=== PATIENT | male | born 1985 | race Two or more races ===

== ENCOUNTER 2018-04-07 10:41 | Emergency (ER) | payer SELFPAY ==
[~2018-04-07] VITALS: Ht 157.5 cm; Wt 63.6 kg
[2018-04-07 11:19] VITALS: Ht 157.5 cm; Wt 63.6 kg
[2018-04-07 11:50] LABS: BASOPHILS 0.4 % (0-2); EOSINOPHILS 0.9 % (0-7); HEMATOCRIT 46.9 % (42.0-54.0); HEMOGLOBIN 16.6 g/dL (13.5-17.5); IMMATURE GRANULOCYTES 0.5 % (0-5); LYMPHOCYTES 18.4 % (15-50); MCH 31.4 pg (26.0-34.0); MCHC 35.4 g/dL (31.0-37.0); MCV 88.7 fL (80.0-100.0); MEAN PLATELET VOLUME 9.5 fL (7.4-10.4); MONOCYTES 4.3 % (2-11); NEUTROPHILS 75.5 % (40-80); PLATELET COUNT 292 10x3/uL (130-400); RBC 5.29 10x6/uL (4.20-6.10); RDW 13.1 % (11.5-14.5); WBC 14.8 10x3/uL (4.8-10.8)
[2018-04-07 12:08] LABS: ALBUMIN 4.3 g/dL (3.4-5.0); ALKALINE PHOSPHATASE 105 U/L (46-116); ALT (SGPT) 45 U/L (10-68); BILIRUBIN - TOTAL 0.55 mg/dL (0.2-1.3); CALC OSMOLALITY 279 mosm/kg (275-300); CALCIUM 9.7 mg/dL (8.5-10.1); CARBON DIOXIDE 22.7 mmol/L (21.0-32.0); CHLORIDE - SERUM 104 mmol/L (98-107); GLUCOSE 138 mg/dL (74-106); POTASSIUM - SERUM 3.5 mmol/L (3.5-5.1); PROTEIN - SERUM 8.2 g/dL (6.4-8.2); SODIUM 140 mmol/L (136-145); UREA NITROGEN 10 mg/dL (7-18); eGFR NON AFRICAN AMERICAN > 90 mL/min (90-120)
[2018-04-07 12:09] LABS: APPEARANCE HAZY (CLEAR); COLOR YELLOW (YELLOW)
[2018-04-07 12:10] LABS: BILIRUBIN NEGATIVE (NEGATIVE); GLUCOSE NEGATIVE (NEGATIVE); KETONE NEGATIVE (NEGATIVE); NITRITE NEGATIVE (NEGATIVE); PROTEIN NEGATIVE (NEGATIVE); UROBILINOGEN NORMAL (NORMAL)
[2018-04-07 12:11] LABS: AMYLASE - SERUM 36 U/L (25-115); LIPASE 163 U/L (73-393); RED CELLS - URINE 0-5 /hpf (0-5)
[2018-04-07 12:12] LABS: TROPONIN-I < 0.017 ng/mL (0.000-0.060)
[2018-04-07 12:13] LABS: BACTERIA FEW /hpf (NONE SEEN); EPITHELIAL CELLS RARE /hpf (0-5)
[2018-04-07] MEDS ORDERED: TORADOL10 MG PO (14:26)
[2018-04-07] MEDS ORDERED: ZOFRAN ODT4 MG/UDTAB PO (14:26)
[2018-04-07] MEDS ORDERED: FLOMAX0.4 MG PO (14:30)
[2018-04-07 15:03] VITALS: BP 118/64
== END 2018-04-07 15:04 | disposition home or self-care (01) ==
LOC: D.ER 10:41
PROVIDERS: Family Medicine
DX: N20.1 Calculus of ureter (principal); N23 Unspecified renal colic